=== PATIENT | male | born 1965 | race Caucasian/White ===

== ENCOUNTER 2016-12-14 16:42 | Emergency (ER) | payer OTHER ==
[~2016-12-14] VITALS: Ht 162.6 cm; Wt 43.2 kg
[~2016-12-14 16:42] MED LIST: BACLOFEN20 MG PO; BACTRIM,SEPT1 TABLET PO; DICLOFENAC SOD100 MG PO; DICLOXACILLIN500 MG PO; DITROPAN5 MG PO; DYNAPEN 250 MG250 MG PO; FLONASE16 G1 BOTH NARES; IRBESARTAN75 MG PO; KEPPRA250 MG PO; NITROFURANTOIN100 MG PO; TOPROL XL50 MG PO; VIAGRA50 MG PO
[2016-12-14] MEDS ORDERED: LIDODERM 5% P1 PATCH TD (18:33)
[2016-12-14 18:48] VITALS: BP 153/82
== END 2016-12-14 18:50 | disposition home or self-care (01) ==
LOC: EME 16:42
DX: S39.012A Strain of muscle, fascia and tendon of lower back, initial encounter (principal); M62.830 Muscle spasm of back; X58.XXXA Exposure to other specified factors, initial encounter; Y93.I1 Activity, roller coaster riding; Y92.831 Amusement park as the place of occurrence of the external cause; G82.20 Paraplegia, unspecified; I10 Essential (primary) hypertension; Z87.440 Personal history of urinary (tract) infections; Z88.1 Allergy status to other antibiotic agents; Z88.0 Allergy status to penicillin
CPT/HCPCS: 71101; 99281; 99283